=== PATIENT | female | born 1950 | race Native Hawaiian/Other Pacific Islander ===

== ENCOUNTER 2016-10-17 13:40 | Emergency (ER) | payer OTHER, MEDICARE ==
[~2016-10-17] VITALS: Ht 154.9 cm; Wt 113.4 kg
[2016-10-17 13:40] VITALS: TEMP 98.3
[~2016-10-17 13:40] MED LIST: ADDERALL30 MG OR; BUPR8SUB2 PO; FLUO10CA2 PO; LIPITOR20 MG PO; LORA0.5T17 PO; PRINIVIL10 MG OR; VENLAFAXINE150 M1 PO; VENLAFAXINE75 M2 PO
[2016-10-17 14:04] LABS: PLATELET COUNT 355 K/uL (152-353)
[2016-10-17] MEDS ORDERED: MOBIC15 MG PO (14:06)
[2016-10-17] MEDS ORDERED: ISOS10TA14 PO (14:06)
[2016-10-17] MEDS ORDERED: ATEN25TA21 PO (14:06)
[2016-10-17 14:15] LABS: POTASSIUM 4.5 mmol/L (3.6-5.2)
[2016-10-17 16:04] VITALS: BP 108/62
== END 2016-10-17 16:05 | disposition home or self-care (01) ==
LOC: ED 13:40
DX: R56.9 Unspecified convulsions (principal); F19.10 Other psychoactive substance abuse, uncomplicated
CPT/HCPCS: 36415; 80053; 80307; 81000; 85027; 93005; 96374; 99284; G0479; J2405

== ENCOUNTER 2018-02-22 14:03 | Outpatient (CLI) | payer OTHER, MEDICARE ==
[~2018-02-22 14:03] MED LIST changes: +ATEN25TA21 PO; +ISOS10TA14 PO; +MOBIC15 MG PO
[2018-02-22 14:18] LABS: PLATELET COUNT 210 K/uL (152-353)
[2018-02-22 14:38] LABS: POTASSIUM 4.8 mmol/L (3.6-5.2)
== END 2018-02-22 19:36 | disposition home or self-care (01) ==
LOC: LABW 14:03
PROVIDERS: Internal Medicine Cardiovascular Disease
DX: R06.02 Shortness of breath (principal); I10 Essential (primary) hypertension; R53.83 Other fatigue
CPT/HCPCS: 36415; 80053; 84443; 85027

== ENCOUNTER 2018-05-05 11:02 | Outpatient (CLI) | payer OTHER, MEDICARE | END 2018-05-05 19:17 | disposition home or self-care (01) | LOC: MAMMO 11:02 | DX: Z12.31 Encounter for screening mammogram for malignant neoplasm of breast (principal); Z13.820 Encounter for screening for osteoporosis ==

== ENCOUNTER 2018-06-05 13:47 | Outpatient (CLI) | payer OTHER, MEDICARE ==
[2018-06-05 14:08] LABS: PLATELET COUNT 243 K/uL (152-353)
[2018-06-05 14:10] LABS: POTASSIUM 4.4 mmol/L (3.6-5.2)
== END 2018-06-05 19:14 | disposition home or self-care (01) ==
LOC: RESP 13:47 → LABW 13:47
PROVIDERS: Student in an Organized Health Care Education/Training Program
DX: Z01.818 Encounter for other preprocedural examination (principal)
CPT/HCPCS: 36415; 80053; 85027; 93005

== ENCOUNTER 2018-07-11 13:20 | Outpatient (CLI) | payer OTHER, MEDICARE | END 2018-07-11 21:12 | disposition home or self-care (01) | LOC: MRI 13:20 | DX: M54.16 Radiculopathy, lumbar region (principal) ==